=== PATIENT | female | born 1980 | race Caucasian/White ===

== ENCOUNTER → 2018-01-25 | Outpatient (CLI) | payer OTHER ==
--- NOTE | 2018-01-25 23:26 | MR ---
EXAMINATION TYPE: MR lspine/sacrum wo con DATE OF EXAM: 01/25/2018 COMPARISON: 01/10/2011 HISTORY: LBP, lt side sciatica/numbness since Oct 2017 TECHNIQUE: Multiplanar, multisequence imaging of the lumbar spine is performed without IV contrast. FINDINGS: The lumbar vertebra have normal alignment. There is narrowing at L5-S1 disc space with mild posterior L5-S1 disc herniation into the spinal canal. There is developmentally adequate canal and n o significant spinal stenosis. The lumbar neural foramina are fairly well maintained. There is no com pression fracture. There is no lumbar paraspinal mass. The sacrum and coccyx segments have fairly nor mal alignment. There is no evidence of a fracture. Presacral soft tissues appear normal. There is no pathologic fluid collection. Sacroiliac joints appear normal. I see no focal bone destruction. CONCLUSION: Degenerative disc narrowing at L5-S1 with mild to moderate posterior disc herniation in the midline t hat is new compared to the previous MR scan. No significant narrowing of the spinal canal due to deve lopmentally adequate canal. No fracture. No significant abnormality seen involving the sacrum and hollie cyx. Normal sacroiliac joints.
== END | disposition home or self-care (01) ==
LOC: RADMRIMAIN 20:58
PROVIDERS: ATTEND Nurse Practitioner Adult Health
DX: M48.07 Spinal stenosis, lumbosacral region (principal); M51.17 Intervertebral disc disorders with radiculopathy, lumbosacral region
CPT/HCPCS: 72148; 72195